=== PATIENT | female | born 1995 | race American Indian/Alaskan Native ===

== ENCOUNTER 2018-02-08 20:06 | Emergency (ER) | payer MEDICAID ==
[2018-02-08 21:28] VITALS: BP 115/57
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
== END 2018-02-09 01:07 | disposition home or self-care (01) ==
LOC: ED 20:06
DX: T74.21XA Adult sexual abuse, confirmed, initial encounter (principal); F17.200 Nicotine dependence, unspecified, uncomplicated; Z88.2 Allergy status to sulfonamides; Z86.2 Personal history of diseases of the blood and blood-forming organs and certain disorders involving the immune mechanism; Y07.9 Unspecified perpetrator of maltreatment and neglect
CPT/HCPCS: 99283